=== PATIENT | male | born 1940 | race Caucasian/White ===

== ENCOUNTER → 2017-09-03 | Outpatient (CLI) | payer OTHER ==
[~2017-09-03] MED LIST: OMNIPAQUE 350 MG/ML, 50 ML BOTTLE ONE
== END | disposition home or self-care (01) ==
LOC: RAD 13:03
PROVIDERS: ATTEND Internal Medicine
DX: I65.23 Occlusion and stenosis of bilateral carotid arteries (principal); I66.21 Occlusion and stenosis of right posterior cerebral artery; G45.8 Other transient cerebral ischemic attacks and related syndromes
CPT/HCPCS: 0042T; Q9967